=== PATIENT | female | born 1950 | race Caucasian/White ===

== ENCOUNTER 2022-10-07 11:07 | Emergency (ER) | payer MEDICARE ==
[~2022-10-07 11:07] MED LIST: Iopamidol 370 76% 100 ML VIAL ONE
[2022-10-07 12:10] LABS: #Basophils 0.1 thou/uL (0.0-0.2); #Monocytes 1.2 thou/uL (0.11-0.59); #Neutrophils 8.3 thou/uL (1.40-6.50); %Basophils 0.6 % (0.0-1.0); %Eosinophils 0.4 % (0.0-10.0); %Lymphocytes 9.6 % (21.0-51.0); %Monocytes 11.1 % (0.0-10.0); %Neutrophils 78.3 % (42.0-75.0); Hemoglobin 10.9 g/dL (12.0-16.0); Mean Corpuscular HGB CONC 32.8 g/dL (32.0-36.0); Mean Corpuscular Volume 94.5 fl (78.0-98.0); Mean Platelet Volume 7.8 fL (7.4-10.4); Platelet Count 297 10x3/uL (130-400); RBC Distribution Width 13.1 % (11.5-14.5); Red Blood Cell (RBC) Count 3.52 mill/uL (4.20-5.40); White Blood Cell (WBC) Count 10.6 10x3/uL (4.8-10.8)
[2022-10-07 12:28] LABS: ALT (SGPT) 13 U/L (8-55); AST (SGOT) 11 U/L (5-34); Albumin 3.9 g/dL (3.4-4.8); Alkaline Phosphatase 75 U/L (40-110); Anion Gap 18 mmol/L (10-20); BUN (Urea Nitrogen) 17 mg/dL (9.8-20.1); Bilirubin, Total 0.8 mg/dL (0.2-1.2); Calc. Creatinine Clearance 0 mL/min (70-130); Calcium 9.4 mg/dL (7.8-10.44); Carbon Dioxide 23 mmol/L (23-31); Chloride 104 mmol/L (98-107); Estimated GFR 68; Globulin 2.3 g/dL (2.4-3.5); Glucose 110 mg/dL (80-115); Potassium 3.5 mmol/L (3.5-5.1); Protein, Total 6.2 g/dL (5.8-8.1); Sodium 141 mmol/L (136-145)
[2022-10-07 12:44] LABS: Bilirubin Negative (Negative); Blood, Urine Negative (Negative); Clarity Clear (Clear); Glucose, Urine (Dipstick) Negative (Negative); Ketone, Urine Trace mg/dL (Negative); Leukocyte Trace (Negative); Nitrite Negative (Negative); Protein, Urine (Dipstick) Negative (Neg-Trace); pH, Urine 5.5 (5.0-9.0)
[2022-10-07 12:47] LABS: Bacteria/HPF Rare-Few HPF (None Seen); RBC/HPF None Seen HPF (0-3); Squamous Epithelial 0-3 HPF (0-3); WBC/HPF 0-3 HPF (0-3)
[2022-10-07 12:48] LABS: Mucous/LPF Few LPF (<2+)
[2022-10-07 13:48] LABS: SARS-CoV-2 NAA Rapid Test Not Detected (NotDetected)
== END 2022-10-07 15:41 | disposition home or self-care (01) ==
LOC: NAV ERS 11:07
DX: S30.1XXA Contusion of abdominal wall, initial encounter (principal); J20.8 Acute bronchitis due to other specified organisms; I25.10 Atherosclerotic heart disease of native coronary artery without angina pectoris; E03.9 Hypothyroidism, unspecified; I10 Essential (primary) hypertension; I73.9 Peripheral vascular disease, unspecified; Y83.8 Other surgical procedures as the cause of abnormal reaction of the patient, or of later complication, without mention of misadventure at the time of the procedure; Z20.822 Contact with and (suspected) exposure to COVID-19; Z87.891 Personal history of nicotine dependence; Z85.42 Personal history of malignant neoplasm of other parts of uterus; Z79.899 Other long term (current) drug therapy
CPT/HCPCS: 71046; 71275; 80053; 81003; 81015; 83880; 84484; 85025; 85379; 87070; 87205; 93005; 94760; Q9967

== ENCOUNTER 2022-12-20 09:46 | Emergency (ER) | payer MEDICARE | END 2022-12-20 11:17 | disposition home or self-care (01) | LOC: NAV ERS 09:46 | DX: S62.303A Unspecified fracture of third metacarpal bone, left hand, initial encounter for closed fracture (principal); S62.305A Unspecified fracture of fourth metacarpal bone, left hand, initial encounter for closed fracture; S62.307A Unspecified fracture of fifth metacarpal bone, left hand, initial encounter for closed fracture; I10 Essential (primary) hypertension; E03.9 Hypothyroidism, unspecified; W19.XXXA Unspecified fall, initial encounter; Z87.891 Personal history of nicotine dependence; Z79.02 Long term (current) use of antithrombotics/antiplatelets ==

== ENCOUNTER 2023-10-27 11:48 | Emergency (ER) | payer MEDICARE ==
[2023-10-27 12:30] LABS: #Basophils 0.1 thou/uL (0.0-0.2); #Lymphocytes 1.6 thou/uL (1.20-3.40); #Monocytes 1.5 thou/uL (0.11-0.59); #Neutrophils 12.1 thou/uL (1.40-6.50); %Basophils 0.7 % (0.0-1.0); %Eosinophils 0.3 % (0.0-10.0); %Lymphocytes 10.6 % (21.0-51.0); %Monocytes 9.9 % (0.0-10.0); %Neutrophils 78.6 % (42.0-75.0); Hematocrit 46.9 % (36.0-47.0); Hemoglobin 15.2 g/dL (12.0-16.0); Mean Corpuscular HGB CONC 32.5 g/dL (32.0-36.0); Mean Corpuscular Hemoglobin 30.2 pg (27.0-31.0); Mean Corpuscular Volume 93.1 fl (78.0-98.0); Mean Platelet Volume 7.9 fL (7.4-10.4); Platelet Count 220 10x3/uL (130-400); RBC Distribution Width 14.6 % (11.5-14.5); Red Blood Cell (RBC) Count 5.04 mill/uL (4.20-5.40); White Blood Cell (WBC) Count 15.3 10x3/uL (4.8-10.8)
[2023-10-27 12:46] LABS: Troponin I Less than 0.010 ng/mL (< 0.028)
[2023-10-27 12:50] LABS: ALT (SGPT) 10 U/L (8-55); AST (SGOT) 13 U/L (5-34); Albumin 4.2 g/dL (3.4-4.8); Alkaline Phosphatase 84 U/L (40-110); Anion Gap 17 mmol/L (10-20); BUN (Urea Nitrogen) 17 mg/dL (9.8-20.1); Bilirubin, Total 0.9 mg/dL (0.2-1.2); Calc. Creatinine Clearance 0 mL/min (70-130); Calcium 9.8 mg/dL (7.8-10.44); Carbon Dioxide 22 mmol/L (23-31); Chloride 106 mmol/L (98-107); Estimated GFR 64; Globulin 2.4 g/dL (2.4-3.5); Glucose 120 mg/dL (80-115); Lipase 9 U/L (8-78); Potassium 3.7 mmol/L (3.5-5.1); Protein, Total 6.6 g/dL (5.8-8.1); Sodium 141 mmol/L (136-145)
[2023-10-27] MEDS ORDERED: Ondansetron PF 4 MG/2 ML Vial ONE ×2 (14:09→19:51)
[2023-10-27 18:12] LABS: Bilirubin Negative (Negative); Blood, Urine Negative (Negative); Clarity Clear (Clear); Glucose, Urine (Dipstick) Negative (Negative); Ketone, Urine Negative (Negative); Leukocyte Negative (Negative); Nitrite Negative (Negative); Protein, Urine (Dipstick) Trace mg/dL (Neg-Trace); Urobilinogen 0.2 mg/dL (Less than 2)
[2023-10-27 18:19] LABS: Specific Gravity, Urine 1.028 (1.002-1.036)
[2023-10-27] MEDS ORDERED: Vancomycin HCl 125 MG Capsule PO SCH (19:00)
[2023-10-27] MEDS ORDERED: Sodium Chloride 0.9% 100 ML ONE (21:31)
[2023-10-27] MEDS ORDERED: Metoclopramide HCl 10 MG (2 mL) VIAL ONE (21:31)
== END 2023-10-27 21:51 | disposition short-term general hospital (02) ==
LOC: NAV ERS 11:48
DX: E86.0 Dehydration (principal); A04.72 Enterocolitis due to Clostridium difficile, not specified as recurrent; I25.10 Atherosclerotic heart disease of native coronary artery without angina pectoris; E03.9 Hypothyroidism, unspecified; I10 Essential (primary) hypertension; Z79.899 Other long term (current) drug therapy; Z87.891 Personal history of nicotine dependence
CPT/HCPCS: 71045; 74176; 80053; 81001; 83605; 83690; 84484; 85025; 87324; 87449; 93005; 96361; 96374; 96375; 96376; J2405; J2765

== ENCOUNTER 2023-11-01 18:22 | Emergency (ER) | payer MEDICARE | END 2023-11-01 19:40 | disposition home or self-care (01) | LOC: NAV ERS 18:22 | DX: K29.00 Acute gastritis without bleeding (principal); I25.10 Atherosclerotic heart disease of native coronary artery without angina pectoris; E03.9 Hypothyroidism, unspecified; I10 Essential (primary) hypertension; Z87.891 Personal history of nicotine dependence; Z79.899 Other long term (current) drug therapy | CPT/HCPCS: 99283 ==

== ENCOUNTER 2023-11-07 12:34 | Emergency (ER) | payer MEDICARE ==
[2023-11-07 12:59] LABS: #Eosinphils 0.1 thou/uL (0.0-0.7); #Lymphocytes 1.6 thou/uL (1.20-3.40); #Monocytes 0.4 thou/uL (0.11-0.59); #Neutrophils 5.3 thou/uL (1.40-6.50); %Basophils 0.2 % (0.0-1.0); %Lymphocytes 21.8 % (21.0-51.0); %Monocytes 5.1 % (0.0-10.0); %Neutrophils 71.9 % (42.0-75.0); Hematocrit 37.5 % (36.0-47.0); Hemoglobin 12.5 g/dL (12.0-16.0); Mean Corpuscular HGB CONC 33.3 g/dL (32.0-36.0); Mean Platelet Volume 7.4 fL (7.4-10.4); Platelet Count 263 10x3/uL (130-400); RBC Distribution Width 14.5 % (11.5-14.5); Red Blood Cell (RBC) Count 4.17 mill/uL (4.20-5.40); White Blood Cell (WBC) Count 7.4 10x3/uL (4.8-10.8)
[2023-11-07 13:06] LABS: Prothrombin Time 13.6 sec (12.0-14.7)
[2023-11-07 13:07] LABS: PTT 27.9 sec (22.9-36.1)
[2023-11-07 13:16] LABS: ALT (SGPT) 19 U/L (8-55); AST (SGOT) 20 U/L (5-34); Albumin 3.2 g/dL (3.4-4.8); Alkaline Phosphatase 76 U/L (40-110); Anion Gap 15 mmol/L (10-20); BUN (Urea Nitrogen) 12 mg/dL (9.8-20.1); Bilirubin, Total 0.3 mg/dL (0.2-1.2); Calc. Creatinine Clearance 0 mL/min (70-130); Calcium 8.6 mg/dL (7.8-10.44); Carbon Dioxide 28 mmol/L (23-31); Chloride 103 mmol/L (98-107); Estimated GFR 90; Globulin 2.6 g/dL (2.4-3.5); Glucose 107 mg/dL (80-115); Potassium 2.8 mmol/L (3.5-5.1); Protein, Total 5.8 g/dL (5.8-8.1); Sodium 143 mmol/L (136-145)
[2023-11-07 13:17] LABS: Troponin I 0.015 ng/mL (< 0.028)
[2023-11-07] MEDS ORDERED: Potassium Chloride 20 MEQ TAB ONE (13:41)
== END 2023-11-07 15:50 | disposition short-term general hospital (02) ==
LOC: NAV ERS 12:34
DX: K92.2 Gastrointestinal hemorrhage, unspecified (principal); I10 Essential (primary) hypertension; E03.9 Hypothyroidism, unspecified; I25.10 Atherosclerotic heart disease of native coronary artery without angina pectoris; Z87.891 Personal history of nicotine dependence; Z79.899 Other long term (current) drug therapy; Z79.02 Long term (current) use of antithrombotics/antiplatelets
CPT/HCPCS: 71046; 80053; 83880; 84484; 85025; 85610; 85730; 93005; 94760